=== PATIENT | male | born 1985 | race Caucasian/White ===

== ENCOUNTER 2016-09-16 14:47 | Emergency (ER) | payer SELFPAY | END 2016-09-16 15:58 | disposition home or self-care (01) | LOC: D.ER 14:47 | DX: S61.210A Laceration without foreign body of right index finger without damage to nail, initial encounter (principal); W26.9XXA Contact with unspecified sharp object(s), initial encounter; Y93.89 Activity, other specified; Y92.019 Unspecified place in single-family (private) house as the place of occurrence of the external cause; F17.200 Nicotine dependence, unspecified, uncomplicated ==

== ENCOUNTER 2018-01-01 09:35 | Emergency (ER) | payer SELFPAY ==
[~2018-01-01] VITALS: Ht 172.7 cm; Wt 75.0 kg
[2018-01-01 09:45] VITALS: Ht 172.7 cm; Wt 75.0 kg
[2018-01-01 10:58] VITALS: BP 123/72
== END 2018-01-01 10:59 | disposition home or self-care (01) ==
LOC: D.ER 09:35
DX: S05.02XA Injury of conjunctiva and corneal abrasion without foreign body, left eye, initial encounter (principal); X58.XXXA Exposure to other specified factors, initial encounter; Y93.89 Activity, other specified; Y92.89 Other specified places as the place of occurrence of the external cause; F17.200 Nicotine dependence, unspecified, uncomplicated

== ENCOUNTER 2018-05-17 18:25 | Emergency (ER) | payer SELFPAY ==
[~2018-05-17] VITALS: Ht 172.7 cm; Wt 75.0 kg
[2018-05-17 18:36] VITALS: Ht 172.7 cm; Wt 75.0 kg
[2018-05-17 21:35] VITALS: BP 127/82
== END 2018-05-17 20:15 | disposition home or self-care (01) ==
LOC: D.ER 18:25
DX: S05.01XA Injury of conjunctiva and corneal abrasion without foreign body, right eye, initial encounter (principal); X58.XXXA Exposure to other specified factors, initial encounter; Y93.89 Activity, other specified; Y92.89 Other specified places as the place of occurrence of the external cause

== ENCOUNTER 2019-08-07 07:52 | Emergency (ER) | payer SELFPAY ==
[~2019-08-07] VITALS: Ht 170.2 cm; Wt 77.3 kg
[2019-08-07 08:01] VITALS: Ht 170.2 cm; Wt 77.3 kg
[2019-08-07] MEDS ORDERED: BUSPAR5 MG (08:02)
[2019-08-07 08:50] LABS: UDS - AMPHET POSITIVE QUAL (NEGATIVE); UDS - BARB NEGATIVE QUAL (NEGATIVE); UDS - BENZO NEGATIVE QUAL (NEGATIVE); UDS - COCAINE NEGATIVE QUAL (NEGATIVE); UDS - OPIATE NEGATIVE QUAL (NEGATIVE); UDS - PCP NEGATIVE QUAL (NEGATIVE); UDS - THC POSITIVE QUAL (NEGATIVE)
[2019-08-07 08:56] LABS: ANION GAP 9.9 mmol/L (8-16); CALCIUM 9.3 mg/dL (8.5-10.1); CREATININE - SERUM 1.2 mg/dL (0.6-1.3); POTASSIUM - SERUM 3.9 mmol/L (3.5-5.1)
[2019-08-07 09:02] LABS: ALBUMIN 4.6 g/dL (3.4-5.0); BILIRUBIN - TOTAL 0.84 mg/dL (0.2-1.3); MAGNESIUM - SERUM 2.4 mg/dL (1.8-2.4)
[2019-08-07 09:13] LABS: BASOPHILS 0.3 % (0-2); EOSINOPHILS 1.9 % (0-7); HEMATOCRIT 45.2 % (42.0-54.0); HEMOGLOBIN 15.5 g/dL (13.5-17.5); IMMATURE GRANULOCYTES 0.3 % (0-5); LYMPHOCYTES 24.5 % (15-50); MCHC 34.3 g/dL (31.0-37.0); MCV 93.2 fL (80.0-100.0); MEAN PLATELET VOLUME 8.6 fL (7.4-10.4); MONOCYTES 8.8 % (2-11); NEUTROPHILS 64.2 % (40-80); PLATELET COUNT 274 10x3/uL (130-400); RBC 4.85 10x6/uL (4.20-6.10); RDW 12.9 % (11.5-14.5); WBC 7.8 10x3/uL (4.8-10.8)
[2019-08-07 09:21] LABS: GLUCOSE NEGATIVE (NEGATIVE); KETONE NEGATIVE (NEGATIVE); NITRITE NEGATIVE (NEGATIVE); SPECIFIC GRAVITY 1.025 (1.005-1.020)
[2019-08-07 09:22] LABS: BILIRUBIN NEGATIVE (NEGATIVE)
[2019-08-07] MEDS ORDERED: PROTONIX40 MG PO (09:46)
[2019-08-07 10:07] VITALS: BP 142/85
== END 2019-08-07 10:08 | disposition home or self-care (01) ==
LOC: D.ER 07:52
PROVIDERS: Family Medicine
DX: F19.10 Other psychoactive substance abuse, uncomplicated (principal); K29.70 Gastritis, unspecified, without bleeding; G62.9 Polyneuropathy, unspecified; K21.9 Gastro-esophageal reflux disease without esophagitis; R10.9 Unspecified abdominal pain; M79.602 Pain in left arm; R20.0 Anesthesia of skin

== ENCOUNTER 2019-11-25 19:02 | Emergency (ER) | payer SELFPAY ==
[~2019-11-25] VITALS: Ht 170.2 cm; Wt 75.0 kg
[~2019-11-25 19:02] MED LIST: BUSPAR5 MG; PROTONIX40 MG PO
[2019-11-25 19:39] VITALS: Ht 170.2 cm; Wt 75.0 kg
[2019-11-25 19:49] LABS: BASOPHILS 0.3 % (0-2); HEMATOCRIT 47.9 % (42.0-54.0); HEMOGLOBIN 16.7 g/dL (13.5-17.5); IMMATURE GRANULOCYTES 0.2 % (0-5); LYMPHOCYTES 45.6 % (15-50); MCH 32.7 pg (26.0-34.0); MCHC 34.9 g/dL (31.0-37.0); MCV 93.7 fL (80.0-100.0); MEAN PLATELET VOLUME 8.3 fL (7.4-10.4); NEUTROPHILS 38.9 % (40-80); PLATELET COUNT 280 10x3/uL (130-400); RBC 5.11 10x6/uL (4.20-6.10); RDW 12.7 % (11.5-14.5); WBC 6.3 10x3/uL (4.8-10.8)
[2019-11-25 20:00] LABS: BILIRUBIN NEGATIVE (NEGATIVE); KETONE NEGATIVE (NEGATIVE); NITRITE NEGATIVE (NEGATIVE); UROBILINOGEN NORMAL mg/dL (< 2)
[2019-11-25 20:16] LABS: CALC OSMOLALITY 272 mosm/kg (275-300); CALCIUM 9.7 mg/dL (8.5-10.1); CARBON DIOXIDE 28.4 mmol/L (21.0-32.0); CHLORIDE - SERUM 101 mmol/L (98-107); CREATININE - SERUM 1.1 mg/dL (0.6-1.3); GLUCOSE 101 mg/dL (74-106); POTASSIUM - SERUM 3.9 mmol/L (3.5-5.1); SODIUM 137 mmol/L (136-145); UREA NITROGEN 9 mg/dL (7-18); eGFR NON AFRICAN AMERICAN 82 mL/min (90-120)
[2019-11-25 20:21] LABS: UDS - AMPHET POSITIVE QUAL (NEGATIVE); UDS - BARB NEGATIVE QUAL (NEGATIVE); UDS - BENZO NEGATIVE QUAL (NEGATIVE); UDS - COCAINE NEGATIVE QUAL (NEGATIVE); UDS - OPIATE NEGATIVE QUAL (NEGATIVE); UDS - PCP NEGATIVE QUAL (NEGATIVE); UDS - THC NEGATIVE QUAL (NEGATIVE)
[2019-11-25 20:22] LABS: ALBUMIN 4.7 g/dL (3.4-5.0); ALKALINE PHOSPHATASE 57 U/L (30-120); ALT (SGPT) 44 U/L (10-68); BILIRUBIN - TOTAL 0.53 mg/dL (0.2-1.3); PROTEIN - SERUM 8.5 g/dL (6.4-8.2)
--- NOTE | 2019-11-25 20:55 | NUR ---
PATIENT IS IN ER WITH SUICIDIAL IDEATIONS, HE HAD A PLAN TO DRINK DRANO, HE IS HEARING VOICES, HE IS VERY PARANOID, PACING, NOT GETTING TOO CLOSE TO ANYONE AND DOESN'T WANT ANYONE TO GET CLOSE TO HIM, PRESSURED SPEECH, EXTREMELY AGITATED. HE HAS A LONG HISTORY OF MENTAL ILLNESS. HE DOESN'T WANT TO SIT DOWN. HE IS UNABLE TO COMMIT TO A SAFETY PLAN TO NOT HARMSELF. HE WILL PLACED ON A ONE TO ONE. 1-800 NUMBER GIVEN TO HIM FOR FUTURE REFERENCE HOWEVER HE DID NOT ACCEPT.
[2019-11-25] MEDS ORDERED: KLONOPIN1 MG PO (21:21)
[2019-11-25 21:41] VITALS: BP 132/89
== END 2019-11-25 21:49 | disposition home or self-care (01) ==
LOC: D.ER 19:02
PROVIDERS: Emergency Medicine
DX: F15.10 Other stimulant abuse, uncomplicated (principal); F23 Brief psychotic disorder; F17.210 Nicotine dependence, cigarettes, uncomplicated